=== PATIENT | male | born 1955 | race Caucasian/White ===

== ENCOUNTER → 2023-08-29 | Outpatient (CLI) | payer MEDICARE ==
--- NOTE | 2023-08-29 22:20 | MR ---
EXAMINATION TYPE: MR shoulder LT wo con DATE OF EXAM: 08/29/2023 COMPARISON: Outside left shoulder x-ray July 13, 2023 HISTORY: Left shoulder pain with difficulty raising arm overhead x 8 months TECHNIQUE: Multiplanar, multisequence imaging of the left shoulder is performed without contrast. FINDINGS: Rotator Cuff: Increased signal in the supraspinatus and infraspinatus tendons. Heterogeneity in the s ubscapularis tendon with surrounding fluid. Rotator cuff muscle bulk is preserved. Acromioclavicular Joint: Mild to moderate narrowing and mild spurring. Moderate capsular hypertrophy. Distal acromion morphology is unremarkable. Glenohumeral Joint: Moderate sized glenohumeral joint effusion. No significant spurring. Labrum: Blunting and increased signal superior labrum consistent with degenerative tear.. Biceps Tendon: The long head of biceps is not identified in normal location within bicipital groove. Labral anchor is not identified, retracted tear is suspected. Bone marrow signal: Marked heterogeneous subcapsular cystic change involving the superolateral kerrie l head and rotator cuff tendon insertion. Other: No additional significant abnormality is appreciated. IMPRESSION: 1. Superior labral tear. 2. Likely torn and dislocated long head of biceps tendon. 3. Marked tendinosis of the supraspinatus and infraspinatus tendons along with the subscapularis tend on. 4. Moderate degenerative changes in the left shoulder as detailed above.
== END | disposition home or self-care (01) ==
LOC: RADMRIMAIN 14:08
PROVIDERS: ATTEND Orthopaedic Surgery
DX: M19.012 Primary osteoarthritis, left shoulder (principal); M67.814 Other specified disorders of tendon, left shoulder; M75.112 Incomplete rotator cuff tear or rupture of left shoulder, not specified as traumatic

== ENCOUNTER 2023-10-16 05:51 | Day surgery (SDC) | payer MEDICARE ==
--- NOTE | 2023-10-14 07:26 | P.HPOR ---
History of Present Illness H&P Date: 10/14/23 Chief Complaint: Left shoulder pain The patient is a 67-year-old left-handed retired gentleman who presents with progressive left shoulder pain for the past 6 months that continues to worsen. He is having pain with overhead activity and at night. He's tried medications, therapy, in addition to an injection without much relief. He notes daily pain that limits his normal function and activities. Review of Systems Per HPI Past Medical History Past Medical History: Diabetes Mellitus, Hypertension, Liver Disease Additional Past Medical History / Comment(s): liver transplant 09/2017, History of Any Multi-Drug Resistant Organisms: None Reported Past Surgical History: Orthopedic Surgery Additional Past Surgical History / Comment(s): liver transplant, ankle surgery lft great toe surgery, Past Anesthesia/Blood Transfusion Reactions: No Reported Reaction Smoking Status: Former smoker - Past Family History Father Family Medical History: No Reported History Medications and Allergies Home Medications Medication Instructions Recorded Confirmed Type Aspirin [Adult Low Dose Aspirin EC] 81 mg PO DAILY 10/12/23 10/12/23 History Escitalopram [Lexapro] 10 mg PO DAILY 10/12/23 10/12/23 History Insulin Glargine,Hum.rec.anlog 40 units SQ 0800 10/12/23 10/12/23 History [Lantus Solostar Pen] Mag Ox (Unk) 1 tab PO DIRECTED 10/12/23 10/12/23 History Metoprolol Succinate [Metoprolol 25 mg PO DAILY 10/12/23 10/12/23 History Succinate ER] Multivitamins, Thera [Multivitamin 1 tab PO DAILY 10/12/23 10/12/23 History (formulary)] Pregabalin [Lyrica] 100 mg PO DAILY 10/12/23 10/12/23 History Tacrolimus [Prograf] 1 mg PO DIRECTED 10/12/23 10/12/23 History Vit C(Unk) 1 tab PO DAILY 10/12/23 10/12/23 History lisinopriL 2.5 mg PO DAILY 10/12/23 10/12/23 History mycophenolate mofetiL [Cellcept] 500 mg PO DIRECTED 10/12/23 10/12/23 History ursodioL [Ursodiol] 300 mg PO DIRECTED 07/01/24 07/01/24 History Allergies Allergy/AdvReac Type Severity Reaction Status Date / Time No Known Allergies Allergy Verified 10/12/23 14:23 Physical Examination - Shoulder left Tenderness with palpation: anterior, bicipital groove Pain: with abduction, with forward flexion ROM: forward flexion: 140 degrees ROM: internal rotation: mid lumbar ROM: external rotation: 70 degrees Crepitus with motion: Yes Strength: abduction: 4/5 Tests: internal impingement tests: positive, external impingment tests: positive Results The patient is a well-developed well-nourished male Proxima 6 foot 2, 230 pounds of mesomorphic habitus. HEENT exam is nonfocal, neck is supple. He is tender about the left shoulder anterior subacromial space. He has a Ashvin deformity. He has moderate subacromial crepitus. Motor strength is 5 -/5 for external rotation. Impingement test, Neer test, and speed tests are positive. His distal neurovascular appears intact in the left upper extremity. - Diagnostic results Shoulder MRI: image reviewed (MRI of the left shoulder is reviewed and shows a supraspinatus tendon tear along with proximal biceps rupture.) Assessment and Plan Assessment: Left rotator cuff tearsymptomatic/proximal biceps rupture History of liver transplant Plan: Italked to the patient at length regarding his condition along with treatment options. At this point is quite symptomatic despite extensive conservative measures. After a thorough discussion he opts to proceed with surgery. We'll plan to proceed with left shoulder arthroscopic evaluation with probable subacromial decompression/rotator cuff repair/possible biceps debridement. We will likely perform as an outpatient procedure. Risks and benefits were discussed at length in layman's terms.
[2023-10-16] MEDS ORDERED: HYDROmorphone 0.5 MG/0.5 ML SYRINGE IVP PRN (05:57)
[2023-10-16] MEDS ORDERED: fentaNYL (PF) 50 MCG/ML 2 ML AMP IVP PRN (05:57)
[2023-10-16] MEDS ORDERED: LIDOCAINE 1% (10MG/ML) FOR IV START INTRADERMA PRN (05:57)
[2023-10-16] MEDS: IV FLUID CONTINUATION 1,000 ML IV ONE ×2 (06:50→09:59)
[2023-10-16] MEDS: LACTATED RINGERS 1,000 ML IV SCH (06:50)
[2023-10-16] MEDS: MIDAZOLAM 2 MG/2 ML VIAL IV PRN (06:57)
[2023-10-16 07:02] LABS: Glucose,Whole Blood 96 mg/dL (70-110)
[2023-10-16] MEDS: ONDANSETRON 4 MG/2 ML VIAL IVP ONE (07:13)
[2023-10-16] MEDS: DEXAMETHASONE SOD PHOSPHATE 4 MG/ML 1 ML VIAL IV ONE (07:13)
--- NOTE | 2023-10-16 07:23 | P.ANPRN ---
Procedure Note - Anesthesia - Nerve Block Performed Left Interscalene Single Time Out Performed: Yes ([id number]) Date of Procedure: 10/16/23 Procedure Start Time: :56 Procedure Stop Time: 07:01 Location of Patient: PreOp Indication: Acute Post-Operative Pain, Requested by Surgeon Sedation Type: Sedate with meaningful contact maintained Preparation: Sterile Prep, Sterile Dressing Position: Sitting Catheter: None Needle Types: Pajunk Needle Gauge: Other (see comment) (22G) Ultrasound used to visualize needle placement: Yes Ultrasound used to observe medication spread: Yes Injectate: 0.5% Ropivacaine (see comment for volume) (20 mL of block solution containing 19 mL of 0.5% ropivacaine mixed with 4 MG of dexamethasone) Narrative: one attempt Blood Aspirated: No Pain Paresthesia on Injection Noted: No Resistance on Injection: Normal Image Stored and Saved: Yes Events: Uneventful and Well Tolerated
[2023-10-16] MEDS ORDERED: PHENYLEPHRINE-0.9% NACL SYG 1,000 MCG/10 ML SYRINGE ONE (07:28)
[2023-10-16] MEDS ORDERED: DEXAMETHASONE SOD PHOSPHATE 4 MG/ML 1 ML VIAL ONE (07:28)
[2023-10-16] MEDS ORDERED: GLYCOPYRROLATE 0.2 MG/ML 2 ML VIAL ONE (07:28)
[2023-10-16] MEDS ORDERED: ROCURONIUM 10 MG/ML (5 ML VIAL) IV ONE (07:28)
[2023-10-16] MEDS ORDERED: LIDOCAINE 1% INJ 10MG/ML (20 ML MDV) ONE (07:28)
[2023-10-16] MEDS ORDERED: NEOSTIGMINE 1 MG/ML 10 ML VIAL ONE (07:28)
[2023-10-16] MEDS ORDERED: PROPOFOL 10 MG/ML 20 ML VIAL IV ONE (07:28)
[2023-10-16] MEDS ORDERED: fentaNYL (PF) 50 MCG/ML 2 ML AMP ONE (07:28)
[2023-10-16] MEDS ORDERED: ROPIVACAINE 5 MG/ML 30 ML VIAL ONE (07:28)
[2023-10-16] MEDS ORDERED: SUCCINYLCHOLINE CHLORIDE 200 MG/10 ML VIAL IV ONE (07:28)
[2023-10-16] MEDS: EPINEPHrine (PF) 1 ML in SODIUM CHLORIDE 0.9% IRRIGATIO 3,000 ML IRRIGATION ONE (08:23)
--- NOTE | 2023-10-16 09:13 | P.OP ---
Date of Procedure: 10/16/23 Preoperative Diagnosis: Left rotator cuff tearsymptomatic Postoperative Diagnosis: Same in addition to proximal biceps rupture Procedure(s) Performed: Left shoulder arthroscopic subacromial decompression/rotator cuff repair/biceps debridement Implants: Arthrex 4.75 mm swivel lock anchor x 1, 5.5 mm swivel lock anchor x 1 Anesthesia: la BOWMAN Surgeon: Harshal Juarez [employer] Psychologist #1: Les Hernandez Estimated Blood Loss (ml): 10 Pathology: none sent Condition: stable Disposition: PACU Indications for Procedure: The patient is a 68-year-old male who presents with progressive left shoulder pain after a previous injury despite attempted conservative measures. A discussion of the risks and benefits of operative intervention versus continued conservative measures was made with the patient. He opted to proceed with surgery. Operative risks include infection, neurovascular injury, develop blood clots, possible tendon rerupture, possible postoperative stiffness, and possible need for subsequent procedures was discussed. Informed consent was obtained. Operative Findings: As below Description of Procedure: The patient was brought to the operating room, and after induction of general anesthesia was placed in a beachchair position. A preoperative interscalene block was placed for postoperative analgesia. I examined the left shoulder. There was no gross block to passive motion or gross glenohumeral instability. The left upper extremity was prepped and draped in normal fashion. The bony outlines the acromion, distal clavicle, and coracoid process were outlined with a skin marker. The glenohumeral joint was inflated with 50 mL of saline utilizing a spinal needle from posterior approach. A posterior portal was made through a 5 mm skin incision 1 cm medial and inferior to the posterior lateral border time. A blunt trocar was used to easily into the joint. Diagnostic arthroscopy was performed. An anterior portal was made just lateral to the coracoid process entering the joint above the subscapularis tendon. The subscapularis tendon appeared to be intact. Anterior labrum was intact. The inferior recess was inspected. The posterior labrum was intact. The biceps was previously ruptured with a stump remaining on the superior labrum. This was debrided back to a stable base with a motorized shaver. On inspection the rotator cuff a full-thickness tear involving the supraspinatus was noted without significant retraction. The arthroscope was placed into the subacromial space. A lateral portal was made 2 centimeters inferior to the anterior lateral border of the acromion. The rotator cuff was then mobilized. This was then easily brought back to the greater tuberosity. The soft tissue on the undersurface of the acromion was debrided with a motorized shaver and electrocautery clearly defining the anterior medial and lateral borders as well as the distal clavicle. An anterior inferior acromioplasty was performed with a motorized leilani starting anterolateral, then extending this posteriorly, then extending this medially. I converted to a flat acromion and this was verified in the posterior and lateral viewing portals. The greater tuberosity was lightly decorticating with a shaver down to a bleeding bony surface. An accessory superior lateral portal was made just off the lateral edge of the acromion for anchor placement. An anchor was then placed just off the articular surface with the appropriate starting awl. A 4.75 mm anchor preloaded with #2 fiber tape was placed. Good purchase was obtained. These fiber tapes were then passed the rotator cuff with a scorpion suture passer. A lateral row was created utilizing these tapes along with a fiber link that was passed. A 5.5 mm swivel lock anchor was placed laterally. Good purchase was obtained. Final arthroscopic view showed adequate compression at the footprint. The arthroscope was then removed. The portals were closed with simple 3-0 nylon sutures. A sterile dressing was applied in addition to a sling. The patient was then awoken from general anesthesia and transferred to recovery room in good condition. Blood loss was estimated at 10 mL. No co mplications were incurred. Sponge and needle counts were correct in the case. Les RAMÍREZ assisted and the major components of the case to include arm positioning, anchor placement, and rotator cuff repair.
[2023-10-16 09:16] VITALS: TEMP 97
[2023-10-16 09:36] LABS: Glucose,Whole Blood 135 mg/dL (70-110)
[2023-10-16 10:11] VITALS: RESP 18
[2023-10-16 10:52] VITALS: BP 128/70; PULSE 75
== END 2023-10-16 11:08 | disposition home or self-care (01) ==
LOC: OR 05:51
PROVIDERS: ATTEND Orthopaedic Surgery
DX: M75.122 Complete rotator cuff tear or rupture of left shoulder, not specified as traumatic (principal); S46.212A Strain of muscle, fascia and tendon of other parts of biceps, left arm, initial encounter; G89.18 Other acute postprocedural pain; E11.42 Type 2 diabetes mellitus with diabetic polyneuropathy; I10 Essential (primary) hypertension; E11.69 Type 2 diabetes mellitus with other specified complication; E78.5 Hyperlipidemia, unspecified; K70.30 Alcoholic cirrhosis of liver without ascites; Z94.4 Liver transplant status; Z87.891 Personal history of nicotine dependence; Z79.82 Long term (current) use of aspirin; Z79.4 Long term (current) use of insulin; Z79.899 Other long term (current) drug therapy; X58.XXXA Exposure to other specified factors, initial encounter
CPT/HCPCS: 29826; 29827; 29822; 64415; C1713 ×3; C1894; J2250; J0330; J1100; J2710; J0690; J2405; J0171; J2001; J3010; J2795; J2704; J2371; J1596; 64447